=== PATIENT | male | born 2000 | race African-American/Black ===

== ENCOUNTER 2023-07-21 12:46 | Emergency (ER) | payer MEDICAID ==
[~2023-07-21] VITALS: Ht 175.3 cm; Wt 77.3 kg
[2023-07-21 12:51] VITALS: TEMP 99.9
[2023-07-21 14:15] LABS: COVID AG,FIA SOURCE NASAL SWAB
[2023-07-21 14:34] VITALS: BP 123/69; PULSE 85; RESP 18
[2023-07-21] MEDS ORDERED: BENZONATATE 100 MG CAPSULE PO ONE (14:45)
[2023-07-21] MEDS ORDERED: ACETAMINOPHEN 500 MG TABLET PO ONE (14:45)
[2023-07-21 14:54] LABS: RAPID GROUP A STREP NEGATIVE (NEGATIVE); SARS-COV2 (COVID) ANTIGEN,FIA Negative (Negative)
[2023-07-21 14:55] LABS: INFLUENZA TYPE A NEGATIVE FOR TYPE A (NEGATIVE); INFLUENZA TYPE B POSITIVE FOR TYPE B (NEGATIVE)
[2023-07-21] MEDS ORDERED: BENZ-227 PO (15:18)
[2023-07-21] MEDS ORDERED: ACET-3385 PO (15:18)
== END 2023-07-21 15:30 | disposition home or self-care (01) ==
LOC: EMS 12:47
DX: J10.1 Influenza due to other identified influenza virus with other respiratory manifestations (principal); F17.210 Nicotine dependence, cigarettes, uncomplicated; Z20.822 Contact with and (suspected) exposure to COVID-19
CPT/HCPCS: 87430; 87804; 99283